=== PATIENT | female | born 1960 | race Caucasian/White ===

== ENCOUNTER 2024-07-07 09:07 | Emergency (ER) | payer BC, OTHER, SELFPAY ==
[2024-07-07 09:08] VITALS: BP 155/100
--- NOTE | 2024-07-07 09:46 | ED.GENMED ---
History of Present Illness
General
Chief Complaint: Fall
Source: patient
Exam Limitations: none
Time Seen by Provider: 07/07/24 09:16
Nursing documentation reviewed up to this point in time: agreed with
History of Present Illness
History of Present Illness:
Patient is a 64-year-old female who presents to the ER complaining of right shoulder injury. Prior to arrival she was walking her dog tripped and fell. She reports she landed on her right shoulder. She is right-hand dominant. She denies hitting
her head. She denies any neck pain back pain. Her only complaint is right shoulder pain. She reports she may have hit her right knee as well but this is not causing her pain. She has pain with lifting right shoulder.
Past History
Past History
ED Past Medical History: Asthma and HTN
ED Past Surgical History: Appendectomy and Orthopedic
Social History
Tobacco: Non-smoker
Alcohol: None
Drug: None
Personal:
Living: with family
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
Family History
Family History: Negative Early CAD
Review of Systems
Review of Systems
Allergies reviewed?: Yes
All Other Systems: ROS reviewed and negative except as documented in HPI and ROS
Constitutional: Reports no symptoms; Denies fever, fatigue or chills
Musculoskeletal: Reports other (right shoulder pain /injury )
Skin: Reports no symptoms
Neurological: Reports no symptoms
Psychiatric: Reports no symptoms
Phy Exam
General Physical Exam
General Presentation: no apparent distress
General age: appears stated age
General Skin: warm and dry
General Habitus: normal
General Mental: alert
General Hydration: appears well hydrated
Neurological Exam
Neurological Exam: alert and oriented x3
Musculoskeletal Exam
Musculoskeletal Exam: other (right U/E with strong pulses normal inspection with no ecchymosis or abrasions to shoulder no deformity able to gently range on her own but has mild discomfort with abduction, strong distal pulses normal distal cap
refill normal grasp)
Skin Exam
Skin Exam: normal color and warm/dry
Psychiatric Exam
Psychiatric Exam: normal mood/affect
Course
Orders/Labs/Results
Orders:
Orders
07/07/24 09:12
CR Humerus - Right Min 2 View* Urgent
Comment:
Reason For Exam: fall
CR Shoulder - Right Min 2 View Urgent
Comment:
Reason For Exam: fall
07/07/24 09:45
Vital Signs- Treatment ONCE
Frequency: Once
Vital Signs
Initial and Last Documented VS:
Initial Vital Signs
Temp Pulse Resp BP Pulse Ox
98.7 F 89 18 155/100 96
07/07/24 09:08 07/07/24 09:08 07/07/24 09:08 07/07/24 09:08 07/07/24 09:08
Last Documented Vital Signs
Temp Pulse Resp BP Pulse Ox
98.7 F 89 18 155/100 96
07/07/24 09:08 07/07/24 09:08 07/07/24 09:08 07/07/24 09:08 07/07/24 09:08
MDM/Problems Addressed
Differential Diagnosis Includes:
Not limited to shoulder contusion, fracture sprain strain, dislocation
MDM/Problems Addressed:
Symptoms are consistent with sprain strain/contusion of right shoulder. X-ray report reviewed patient is well-appearing in no acute distress will DC with ice ibuprofen and outpatient Ortho follow-up. Patient was offered a sling but declines. Not
*Radiology
Radiology exam reviewed: radiology read reviewed
*Pulse Oximetry
Patient hypoxic: no
*Critical Care Note
Total Time (30-74mins, 75-104mins- exclusive of procedures): Not Applicable
ED Attending Note
-
Portions of this chart may have been created with voice recognition software.� Occasional wrong word or��sound alike� substitutions may have occurred due to the inherent limitations of voice recognition software.
Discharge Plan
Departure
Patient Disposition: Home (Routine Discharge)
Date of Disposition: 07/07/24
Time of Disposition: 09:45
Patient with high blood pressure during this ER visit?: Yes
Discharge Problem:
Contusion of right shoulder, Right shoulder strain
Instructions: Contusion (DC), Shoulder pain, BLOOD PRESSURE
Prescriptions:
No Action
Theragen Tablet
1 tab PO DAILY
calcium carbonate [Calcium 500] 500 mg calcium (1,250 mg) Tablet
500 mg PO DAILY
irbesartan-hydrochlorothiazide 300-12.5 mg tablet
1 tab PO DAILY
fluticasone furoate-vilanterol [Breo Ellipta] 200-25 mcg/dose blister with device
1 ea INHALATION R DAILYPRN PRN (Reason: sob)
metformin 500 mg tablet
500 mg PO BID Qty: 60 0RF
Referrals:
Ramiro Gutierrez MD [Active] -
Lokesh Ovalles MD [Family Provider] -
Activity Restrictions/Additional Instructions:
As discussed x-ray were negative for fractures. Ice the affected area for the next 24 hours for 20 minutes at a time several times a day. You may take ibuprofen 600 mg every 8 hours with food. You may do gentle range of motion. Follow-up with
orthopedics in the next several days return if any worsening of symptoms
Interventions
Interventions:
*Risk Screen - Suicide Last Done: 07/07/24 09:08
*Neglect/Abuse Screening Last Done: 07/07/24 09:08
Discharge Date and Time
Print Language: ROMANIAN
== END 2024-07-07 09:58 | disposition home or self-care (01) ==
LOC: EMR 09:07
PROVIDERS: EMERGENCY PHYSICIAN Emergency Medicine; FAMILY PHYSICIAN Family Medicine
DX: S40.011A Contusion of right shoulder, initial encounter (principal); S46.911A Strain of unspecified muscle, fascia and tendon at shoulder and upper arm level, right arm, initial encounter; W01.0XXA Fall on same level from slipping, tripping and stumbling without subsequent striking against object, initial encounter; I10 Essential (primary) hypertension; J45.909 Unspecified asthma, uncomplicated; Z90.49 Acquired absence of other specified parts of digestive tract
CPT/HCPCS: 99283; 73030; 73060

== ENCOUNTER → 2024-08-29 07:31 | Outpatient (REF) | payer BC, OTHER, SELFPAY | LOC: PAVMRI 07:31 | PROVIDERS: ATTENDING PHYSICIAN Family Medicine | DX: M25.511 Pain in right shoulder (principal) | CPT/HCPCS: 73221 ==

== ENCOUNTER → 2025-03-28 10:32 | Outpatient (REF) | payer BC, OTHER, SELFPAY | LOC: PAVMRI 10:32 | PROVIDERS: ATTENDING PHYSICIAN Orthopaedic Surgery Sports Medicine; FAMILY PHYSICIAN Family Medicine | DX: M75.121 Complete rotator cuff tear or rupture of right shoulder, not specified as traumatic (principal) | CPT/HCPCS: 73221 ==